=== PATIENT | male | born 1975 | race African-American/Black ===

== ENCOUNTER 2017-07-11 12:58 | Emergency (ER) | payer SELFPAY ==
[2017-07-11 13:42] LABS: #Basophils 0.1 thou/uL (0.0-0.2); #Eosinphils 0.7 thou/uL (0.0-0.7); #Lymphocytes 2.1 thou/uL (1.20-3.40); #Monocytes 0.4 thou/uL (0.11-0.59); #Neutrophils 3.1 thou/uL (1.40-6.50); %Basophils 0.9 % (0.0-1.0); %Eosinophils 11.7 % (0.0-10.0); %Lymphocytes 32.3 % (21.0-51.0); %Monocytes 5.9 % (0.0-10.0); %Neutrophils 49.2 % (42.0-75.0); Hemoglobin 15.1 g/dL (14.0-18.0); Mean Corpuscular HGB CONC 32.1 g/dL (32.0-36.0); Mean Corpuscular Hemoglobin 28.4 pg (27.0-31.0); Mean Corpuscular Volume 88.6 fl (80.0-94.0); Mean Platelet Volume 8.6 fL (7.4-10.4); Platelet Count 190 thou/uL (130-400); RBC Distribution Width 11.9 % (11.5-14.5); Red Blood Cell (RBC) Count 5.31 mill/uL (4.70-6.10); White Blood Cell (WBC) Count 6.4 thou/uL (4.8-10.8)
[2017-07-11 13:50] LABS: ALT (SGPT) 16 U/L (8-55); AST (SGOT) 18 U/L (5-34); Albumin 4.4 g/dL (3.5-5.0); Alkaline Phosphatase 72 U/L (40-150); Anion Gap 10 mmol/L (10-20); BUN (Urea Nitrogen) 16 mg/dL (8.9-20.6); Bilirubin, Total 0.5 mg/dL (0.2-1.2); CK (CPK) 179 U/L (30-200); Calc. Creatinine Clearance 0 mL/min (70-130); Calcium 9.9 mg/dL (7.8-10.44); Carbon Dioxide 27 mmol/L (22-29); Chloride 106 mmol/L (98-107); Estimated GFR-MDRD Greater than 90; Globulin 3.3 g/dL (2.4-3.5); Glucose 80 mg/dL (70-105); Lipase 65 U/L (8-78); Potassium 3.8 mmol/L (3.5-5.1); Protein, Total 7.7 g/dL (6.0-8.3); Sodium 139 mmol/L (136-145)
[2017-07-11 13:53] LABS: CKMB 1.6 ng/mL (0-6.6); Troponin I Less than 0.010 ng/mL (< 0.028)
--- NOTE | 2017-07-11 13:53 | RAD ---
SINGLE VIEW CHEST: Date: 07/11/17 COMPARISON: 11/17/13. HISTORY: Dizziness and chest tightness/chest pain. FINDINGS: Single view of the chest shows a normal sized cardiomediastinal silhouette. There is no evidence of c onsolidation, mass, or pleural effusion. The bones are unremarkable. IMPRESSION: No evidence of acute cardiopulmonary disease. POS: [facility]
--- NOTE | 2017-07-11 13:58 | CT ---
CT OF THE BRAIN WITHOUT CONTRAST: Date: 07/11/17 COMPARISON: 11/17/13. HISTORY: Dizziness since yesterday and headache. TECHNIQUE: Multiple contiguous axial images were obtained in a CT of the brain without contrast. FINDINGS: The brain is normal in morphology and attenuation without focal lesions or confluent areas of infarct ion. There is no evidence of hydrocephalus, intracranial hemorrhage, or extra-axial fluid collection. The calvarium and overlying soft tissues are unremarkable. The visualized paranasal sinuses and masto id air cells are well aerated. IMPRESSION: No evidence of acute intracranial abnormality. POS: [facility]
== END 2017-07-11 15:23 | disposition home or self-care (01) ==
LOC: ERS 12:58
DX: G43.909 Migraine, unspecified, not intractable, without status migrainosus (principal); R42 Dizziness and giddiness
CPT/HCPCS: 70450; 71045; 80053; 82553; 83690; 84484; 85025; 93005; 96360

== ENCOUNTER 2017-09-08 07:46 | Emergency (ER) | payer SELFPAY ==
[2017-09-08] MEDS ORDERED: Tetracaine HCl 0.5% Ophth Soln 15 ML Bottle EA EYE SCH (08:15)
== END 2017-09-08 08:38 | disposition home or self-care (01) ==
LOC: ERS 07:46
DX: H57.11 Ocular pain, right eye (principal)
CPT/HCPCS: 99283